=== PATIENT | female | born 1995 | race African-American/Black ===

== ENCOUNTER 2017-08-13 12:06 | Outpatient (CLI) | payer MEDICAID ==
[2017-08-13 12:31] VITALS: BP 120/70
--- NOTE | 2017-08-13 17:46 | Ultrasound Report ---
FINAL REPORT PROCEDURE: US OB LIMITED TECHNIQUE: Real-time limited sonographic examination was performed for evaluation of size, position, heartbeat, fluid volume for each fetus with image documentation (1 or more fetuses). CPT 93728 HISTORY: erica COMPARISON: No prior studies are available for comparison. FINDINGS: IUP: Single living intrauterine Position: Cephalic. Amniotic fluid volume: Normal. 14.9 Heart rate and rhythm: 133 BPM, Regular . Estimated clinical age 37 weeks 3 days EDC: August 31, 2017. IMPRESSION: Single viable fetus with normal ERICA of 14.9
--- NOTE | 2017-08-13 17:59 | Ultrasound Report ---
FINAL REPORT PROCEDURE: US OB BPP WO NON-STRESS TECHNIQUE: Sonographic evaluation for breathing, movement, tone, and amniotic fluid volume was performed. CPT 53052 HISTORY: well being COMPARISON: Limited study today FINDINGS: Amniotic fluid volume: Normal-score 2. At least one vertical pocket > 2 cm or more in vertical axis. breathing: Normal-score 2. movement: Normal-score 2. tone: Normal. Score: 8 of 8. Heart rate 133 beats per minute IMPRESSION: Normal biophysical profile.
== END 2017-08-13 17:39 | disposition home or self-care (01) ==
LOC: TRG 12:06
PROVIDERS: ATTEND Obstetrics & Gynecology
DX: Z34.93 Encounter for supervision of normal pregnancy, unspecified, third trimester (principal); Z3A.37 37 weeks gestation of pregnancy
CPT/HCPCS: 59025; 76815; 76819

== ENCOUNTER 2017-08-19 14:30 | Inpatient (IN) | payer MEDICAID ==
[2017-08-19] MEDS ORDERED: STADOL IV PRN (16:55)
[2017-08-19] MEDS ORDERED: BRETHINE SUB-Q PRN (16:55)
[2017-08-19] MEDS ORDERED: SUBLIMAZE IV PRN (16:55)
[2017-08-19] MEDS ORDERED: XYLOCAINE 2% INFILTRATI ONE ×2 (16:55→20:18)
[2017-08-19] MEDS ORDERED: MINERAL OIL PO PRN (16:55)
[2017-08-19] MEDS ORDERED: BRETHINE IVP PRN (16:55)
[2017-08-19] MEDS ORDERED: ePHEDrine SULFATE IV PRN (16:55)
[2017-08-19] MEDS ORDERED: LACTATED RINGERS 1,000 ML IV SCH (17:00)
[2017-08-19] MEDS ORDERED: PITOCin/NS 20 UNIT/1000ML DRIP 20 UNITS/1,000 ML BAG IV SCH (17:00)
--- NOTE | 2017-08-19 17:09 | History and Physical Report ---
History of Present Illness Date of examination: 08/19/17 Date of admission: 08/19/2017 Chief complaint: Contractions History of present illness: Patient presents with c/o regular ctxs of worsening intensity since this morning. She denies VB or LOF. She reports +FMs. She has had regular care at [facility] beginning at 17 weeks gestation. She has a h/o abn pap & vit D insufficiency. Neg COLPO 04/02/17 and is on Vit D supplement. Past History Past Medical History: no pertinent history Past Surgical History: no surgical history [employer] History: abnormal PAP smear (LGSIL 2016), chlamydia (2013), trichomonas ( 2012) Family/Genetic History: none Social history: no significant social history - Obstetrical History Expected Date of Delivery: 08/31/17 Actual Gestation: 38 Week(s) 2 Day(s) : 3 Para: 1 Hx # Term Pregnancies: 1 Number of Pregnancies: 0 Spontaneous Abortions: 1 Induced : 0 Number of Living Children: 1 Medications and Allergies Allergies Allergy/AdvReac Type Severity Reaction Status Date / Time No Known Allergies Allergy Unverified 09/04/15 06:31 Home Medications Medication Instructions Recorded Confirmed Last Taken Type Acetaminophen/Codeine [Tylenol #3] 1 tab PO Q6H PRN #20 tab 09/04/15 Unknown Rx Ibuprofen [Motrin] 600 mg PO Q8H PRN #40 tablet 09/04/15 Unknown Rx Promethazine [Phenergan TAB] 25 mg PO Q6HR PRN #20 tab 09/04/15 Unknown Rx Review of Systems All systems: negative - Vital Signs Vital signs: Vital Signs Temp Pulse Resp BP 97.5 F L 96 H 18 124/73 08/19/17 15:02 08/19/17 15:02 08/19/17 15:02 08/19/17 15:02 Temp Pulse Resp BP Pulse Ox 97.5 F L 96 H 18 124/73 08/19/17 15:02 08/19/17 15:06 08/19/17 15:02 08/19/17 15:06 - Physical Exam Breasts: Positive: deferred Cardiovascular: Regular rate, Normal S1, Normal S2, No murmurs Lungs: Positive: Clear to auscultation, Normal air movement Abdomen: Positive: normal appearance, soft Genitourinary (Female): Positive: normal external genitalia, normal perenium Vulva: both: normal Vagina: Positive: normal moisture Uterus: Positive: normal size, normal contour Anus/Rectum: Positive: normal perianal skin Extremities: Positive: normal Deep Tendon Reflex Grade: Normal +2 - Obstetrical FHR: category 1 FHR comments: baseline 135, moderate variability, +accels, no decels Uterine Contraction Monitor Mode: External Cervical Dilatation: 4.5 Cervical Effacement Percentage: 90 station: -2 Uterine Contraction Frequency (min): 3-4 Uterine Contraction Pattern: Regular Results All other labs normal. Assessment and Plan - Patient Problems (1) 38 weeks gestation of Current Visit: Yes Status: Acute (2) Active labor at term Current Visit: Yes Status: Acute Plan to address problem: Admit to L&D Continuous EFM with bathroom privilege May have a regular diet x1 Will start Oxytocin for labor augmentation if no cervical change in 4 hours IV sedation and/or epidural anesthesia for pain management Anticipate Vaginal Delivery
[2017-08-19 18:46] LABS: Hemoglobin 12.8 gm/dl (10.1-14.3); Mean Corpuscular HGB Conc 34 % (30-34); Mean Corpuscular Hemoglobin 30 pg (28-32); Mean Corpuscular Volume 89 fl (79-97); Platelet Count 253 K/mm3 (140-440); Red Blood Count 4.29 M/mm3 (3.65-5.03); Red Cell Distribution Width 13.4 % (13.2-15.2)
--- NOTE | 2017-08-19 21:23 | Event Note ---
Date: 08/19/17 S: Pt lying in semifowler's position with partner at bedside. C/O worsening contractions but declines IV sedation or epidural anesthesia at this time. O: FHR - baseline 140, moderate variability, 15x15 accels, no decels CTXS q3mins, palpate moderate SVE 7/100/0/vtx/BBOW AROM @ 21:07, clear fluid, moderate amount A: 22yo G 3 P 1 0 1 1 @ 38w2d by LMP Active Labor GBS negative Artificial Rupture of Membranes P: Position changes [id number] Anticipate vaginal delivery
[2017-08-19] MEDS ORDERED: TYLENOL PO PRN (22:45)
[2017-08-19] MEDS ORDERED: MILK OF MAGNESIA PO PRN (22:45)
[2017-08-19] MEDS ORDERED: TUCKS PAD TP PRN (22:45)
[2017-08-19] MEDS ORDERED: BENADRYL PO PRN (22:45)
[2017-08-19] MEDS ORDERED: ZOFRAN IV PRN (22:45)
[2017-08-19] MEDS ORDERED: LANSINOH TP PRN (22:45)
[2017-08-19] MEDS ORDERED: PHENERGAN PR PRN (22:45)
[2017-08-19] MEDS ORDERED: DULCOLAX PR PRN (22:45)
[2017-08-19] MEDS ORDERED: PHENERGAN PO PRN (22:45)
[2017-08-19] MEDS ORDERED: SODIUM CHLORIDE FLUSH SYRINGE 10 ML IV PRN (23:00)
--- NOTE | 2017-08-19 23:08 | Procedure Note ---
OB Delivery Note - Delivery Date of Delivery: 08/19/17 (22:20) Surgeon: JASPAL MACHUCA Estimated blood loss: 100cc - Vaginal Delivery presentation: vertex Delivery position: OA Intrapartum events: none Delivery induction: none Delivery augmentation: rupture of membranes (AROM @ 21:07) Delivery monitor: external FHT, external uterine Route of delivery: Delivery placenta: spontaneous (@ 22:33) Delivery cord: 3 umbilical vessels Episiotomy: none Delivery laceration: none Anesthesia: none Delivery comments: of a vigorous term male @ 22:20. Baby placed [id number] on maternal abdomen. Was dried and bulb-suctioned by RN. After 3 mins, the umbilical cord was double-clamped by me then cut by FOB. Spontaneous delivery of placenta @ 22: 33, Ro. Fundal massage and IV Pitocin bolus initiated. Placenta intact. Fundus F/ML/U-3. Small lochia noted. Perineum intact. No lacerations noted. Mom and baby in stable condition. - Infant A at 1 minute: 8 at 5 minutes: 9 Infant Gender: Male (7lbs 14oz (3558 gm))
[2017-08-20] MEDS: MOTRIN PO SCH ×3 (05:44→23:49)
[2017-08-20] MEDS ORDERED: BOOSTRIX IM ONE (06:00)
--- NOTE | 2017-08-20 09:59 | Progress Note ---
Assessment and Plan A: PP DAy #1 Stable P: Follow Routine orders D/C home in the AM RTO in one Week for Male circumcision RTO in 6 Weeks for PP Exam (plans Mirena IUD) Subjective - Subjective Date of service: 08/20/17 Patient reports: appetite normal, voiding normally, pain well controlled, flatus , ambulating normally [place]: doing well Objective - Vital Signs Latest vital signs: Vital Signs Temp Pulse Resp BP BP Pulse Ox 08/20/17 07:44 98.3 F 69 20 115/67 96 08/20/17 05:44 18 08/20/17 03:30 97.7 F 84 20 99/58 96 08/19/17 23:29 75 134/73 08/19/17 23:28 98.0 F 75 20 134/73 08/19/17 22:55 78 20 129/76 08/19/17 22:54 78 129/76 08/19/17 22:45 81 20 125/68 08/19/17 22:44 81 125/68 08/19/17 22:34 98.2 F 75 20 128/62 128/62 08/19/17 21:33 77 99 08/19/17 21:28 99 H 97 08/19/17 21:23 87 90 08/19/17 21:18 85 99 08/19/17 21:13 88 98 08/19/17 21:08 82 100 08/19/17 21:03 84 98 08/19/17 20:58 83 98 08/19/17 20:53 77 100 08/19/17 20:47 85 99 08/19/17 20:42 89 100 08/19/17 20:37 85 99 08/19/17 20:32 86 100 08/19/17 20:27 83 100 08/19/17 20:22 86 99 08/19/17 20:18 71 126/84 08/19/17 20:17 85 100 08/19/17 20:12 86 99 08/19/17 20:07 85 98 08/19/17 20:02 82 98 08/19/17 19:57 90 99 08/19/17 19:52 87 99 08/19/17 19:47 82 99 08/19/17 19:42 83 98 08/19/17 19:37 82 98 08/19/17 19:32 81 98 08/19/17 19:27 86 98 08/19/17 19:22 90 99 08/19/17 19:17 82 99 08/19/17 19:12 94 H 99 08/19/17 19:07 85 98 08/19/17 19:06 91 H 93 08/19/17 18:55 85 98 08/19/17 18:50 86 98 08/19/17 18:45 80 98 08/19/17 18:40 82 98 08/19/17 18:35 81 97 08/19/17 18:30 77 98 08/19/17 18:25 83 97 08/19/17 18:20 80 97 08/19/17 18:15 74 98 08/19/17 18:10 85 100 08/19/17 18:05 83 100 08/19/17 17:57 97.1 F L 96 H 16 124/73 98 08/19/17 15:06 96 H 124/73 08/19/17 15:02 97.5 F L 96 H 18 124/73 Intake and Output 08/19/17 08/20/17 08/20/17 22:59 06:59 14:59 Intake Total 480 Output Total 300 Balance 180 Intake: Oral 480 Output: Urine 300 Void 300 Other: Total, Intake Amount 240 Total, Output Amount 300 Weight 92.079 kg Estimated Blood Loss 100 - Exam Breasts: Present: normal Cardiovascular: Present: Regular rate Lungs: Present: Clear to auscultation, Normal air movement Abdomen: Present: normal appearance, soft, normal bowel sounds Uterus: Present: normal, firm, fundal height below umbilicus Extremities: Present: normal - Labs Labs: Abnormal lab results 08/19/17 Range/Units 18:05 WBC 16.4 H (4.5-11.0) K/mm3
[2017-08-20] MEDS ORDERED: PRENATAL VITAMIN PO SCH (10:00)
--- NOTE | 2017-08-20 10:00 | Discharge Summary ---
Providers - Providers Date of Admission: 08/19/17 14:31 Date of discharge: 08/21/17 Attending physician: HEBER TALAVERA MD Primary care physician: HEBER TALAVERA MD Hospitalization Reason for admission: active labor Delivery: Episiotomy: none Laceration: none Other procedures: none complications: none Discharge diagnosis: IUP at term delivered [place] baby: male Condition at discharge: Good Disposition: DC-01 TO HOME OR SELFCARE Plan - Provider Discharge Summary Activity: routine, no sex for 6 weeks, no heavy lifting 4 weeks, no strenuous exercise Diet: routine Instructions: routine Additional instructions: [] Smoking cessation referral if applicable(refer to patient education folder for contact #) [] Refer to [facility]'s [facility] Booklet Call your doctor immediately for: * Fever > 100.5 * Heavy vaginal bleeding ( >1 pad per hour) * Severe persistent headache * Shortness of breath * Reddened, hot, painful area to leg or breast * Drainage or odor from incision. * Keep incision clean and dry at all times and follow doctor's instructions regarding bathing/showering - Follow up plan Follow up: HEBER TALAVERA MD [Primary Care Provider] - 6 Weeks
[2017-08-20] MEDS ORDERED: Fluarix Quad 2017-2018(36 MOS+ IM ONE (12:00)
[2017-08-20 13:59] LABS: Hematocrit 32.5 % (30.3-42.9); Hemoglobin 11.1 gm/dl (10.1-14.3)
[2017-08-20] MEDS: NORCO 5/325 PO PRN (17:05)
[2017-08-21] MEDS: NORCO 5/325 PO PRN (04:31)
[2017-08-21] MEDS: MOTRIN PO SCH ×2 (05:34→11:30)
[2017-08-21] MEDS ORDERED: BOOSTRIX IM ONE ×2 (05:36)
[2017-08-21] MEDS ORDERED: M-M-R II VACCINE SUB-Q ONE (09:00)
[2017-08-21 09:20] VITALS: BP 132/89
[2017-08-21] MEDS ORDERED: Fluarix Quad 2017-2018(36 MOS+ IM ONE (12:00)
== END 2017-08-21 12:15 | disposition home or self-care (01) | DRG 775 ==
LOC: TRG 14:30 → LD 14:31 → TRG 14:31 → LD 15:49 → OB 08-20 01:11
PROVIDERS: ADMIT Obstetrics & Gynecology; ATTEND Obstetrics & Gynecology
PROC: 10E0XZZ Delivery of Products of Conception, External Approach (ICD-10-PCS; principal; 2017-08-19)
PROC: 3E0234Z Introduction of Serum, Toxoid and Vaccine into Muscle, Percutaneous Approach (ICD-10-PCS; 2017-08-19)
PROC: 10907ZC Drainage of Amniotic Fluid, Therapeutic from Products of Conception, Via Natural or Artificial Opening (ICD-10-PCS; 2017-08-19)
DX: O80 Encounter for full-term uncomplicated delivery (principal); Z3A.38 38 weeks gestation of pregnancy; Z37.0 Single live birth; Z23 Encounter for immunization
CPT/HCPCS: 36415; 85014; 85018; 85027; 86592; 86850; 86900; 86901; 90686; 90715; 99211; G0463; J2590; J3010; J7120

== ENCOUNTER 2021-05-13 21:50 | Emergency (ER) | payer MEDICAID | END 2021-05-13 23:48 | disposition left against medical advice (07) | LOC: ED 21:50 | DX: T14.8XXA Other injury of unspecified body region, initial encounter (principal); Z53.21 Procedure and treatment not carried out due to patient leaving prior to being seen by health care provider ==